=== PATIENT | male | born 1965 | race African-American/Black ===

== ENCOUNTER 2021-09-22 08:14 | Emergency (ER) | payer OTHER ==
[2021-09-22 08:28] VITALS: TEMP 98; BMI 48.4
[2021-09-22 10:04] VITALS: BP 188/90; PULSE 73
[2021-09-22 10:12] LABS: BASO % 0.3 % (0-2.0); EOS % 0.5 % (0-4.5); HEMATOCRIT 31.9 % (35.4-49); HEMOGLOBIN 10.5 GM/dL (11.7-16.9); LYMPH % 23.2 % (8-40); MCH 31.7 pg (25.7-33.7); MCHC 32.9 g/dl (32.0-35.9); MEAN CELL VOLUME 96.2 fl (80-96); MEAN PLT VOLUME 8.2 fl (7.5-11.1); MONO % 5.3 % (3.8-10.2); NEUT % 70.7 % (42.8-82.8); PLATELET COUNT 135 10^3/uL (134-434); RBC 3.31 M/mm3 (4.00-5.60); RDW 14.8 % (11.9-15.9); WHITE BLOOD COUNT 8.2 K/mm3 (4.0-10.0)
[2021-09-22 10:28] LABS: ALBUMIN 2.8 g/dl (3.4-5.0); BLOOD UREA NITROGEN 64.8 mg/dL (7-18); CALCIUM 8.9 mg/dL (8.5-10.1)
[2021-09-22 10:32] LABS: CREATININE 6.1 mg/dL (0.55-1.3)
[2021-09-22 10:33] LABS: BILIRUBIN,TOTAL 0.6 mg/dL (0.2-1); TOT PROT 7.3 g/dl (6.4-8.2)
== END 2021-09-22 11:00 | disposition home or self-care (01) ==
LOC: JER 08:14
DX: R53.1 Weakness (principal); Z11.52 Encounter for screening for COVID-19
CPT/HCPCS: 36415; 71045-TC-FY; 80053; 84484; 85025; 93005; 93010; 99285-25; C9803-CS; U0003; U0005